=== PATIENT | male | born 1985 | race Caucasian/White ===

== ENCOUNTER 2017-12-29 12:12 | Emergency (ER) | payer OTHER ==
[~2017-12-29] VITALS: Ht 203.2 cm; Wt 87.0 kg
[2017-12-29 12:16] VITALS: BP 146/84
== END 2017-12-29 13:02 | disposition home or self-care (01) ==
LOC: ER 12:44
DX: F90.9 Attention-deficit hyperactivity disorder, unspecified type (principal)
CPT/HCPCS: 99283